=== PATIENT | male | born 1955 | race African-American/Black ===

== ENCOUNTER 2018-08-14 12:48 | Inpatient (IN) | payer MEDICAID ==
[~2018-08-14] VITALS: Ht 182.9 cm; Wt 70.3 kg
--- NOTE | 2018-08-14 13:00 | NUR ---
patient presented to the ER c/o abd pain, on room air, breathing evenly and unlabored. connected to the monitor and pulse ox. kept comfortable, will continue to monitor accordingly.
[2018-08-14] MEDS ORDERED: ONDANSETRON HCL/PF 4 MG/2 ML VIAL IVP ONE (13:30)
[2018-08-14] MEDS ORDERED: MORPHINE SULFATE INJ 2 MG/ML DISP.SYRIN IV ONE (13:30)
[2018-08-14] MEDS ORDERED: IV NS 0.9% 1,000 ML BAG IV ONE (13:30)
[2018-08-14] MEDS ORDERED: MORPHINE SULFATE INJ 4 MG/ML DISP.SYRIN ONE (13:41)
[2018-08-14] MEDS ORDERED: ONDANSETRON HCL/PF 4 MG/2 ML VIAL ONE (13:41)
[2018-08-14 13:45] LABS: BASOPHILS % (AUTO) 0.7 % (0.0-2.0); EOSINOPHILS % (AUTO) 1.9 % (0.0-6.0); HEMATOCRIT 40 % (39-51); HEMOGLOBIN 13.4 g/dL (13.5-17.5); LYMPHOCYTES # (AUTO) 1.5 /CMM (0.8-4.8); LYMPHOCYTES % (AUTO) 35.8 % (20.0-44.0); MEAN CORPUSCULAR HGB CONC 33 g/dl (31.0-36.0); MEAN CORPUSCULAR VOLUME 92 fL (80-96); MONOCYTES # (AUTO) 0.3 /CMM (0.1-1.30); MONOCYTES % (AUTO) 7.9 % (2.0-12.0); NEUTROPHILS # (AUTO) 2.3 /CMM (1.8-8.9); NEUTROPHILS % (AUTO) 53.7 % (43.0-81.0); PLATELET COUNT (AUTO) 193 /CMM (150-450); RED BLOOD CELL COUNT(AUTO) 4.35 MIL/uL (4.5-6.0); WHITE BLOOD COUNT (AUTO) 4.3 K/uL (4.3-11.0)
[2018-08-14 13:54] LABS: CALCIUM, SERUM 8.4 mg/dL (8.5-10.1); CARBON DIOXIDE 29 mmol/L (21-32); CHLORIDE 109 mmol/L (98-107); CREATININE 1.3 mg/dL (0.6-1.3); GLUCOSE 166 mg/dL (74-106); POTASSIUM 3.6 mmol/L (3.5-5.1); SODIUM SERUM 145 mmol/L (136-145); UREA NITROGEN, BLOOD 26 mg/dL (7-18)
[2018-08-14 14:01] LABS: ALANINE AMINOTRANSFERASE 62 U/L (12-78); ALBUMIN 3.5 g/dL (3.4-5.0); ALKALINE PHOSPHATASE 53 U/L (46-116); ASPARTATE AMINOTRANSFERASE 48 U/L (15-37); BILIRUBIN,DIRECT 0.1 mg/dL (0.0-0.2); BILIRUBIN,TOTAL 0.3 mg/dL (0.2-1.0); LIPASE 56 U/L (73-393)
[2018-08-14] MEDS ORDERED: IOHEXOL-300 100 ML VIAL IV ONE (15:33)
--- NOTE | 2018-08-14 15:54 | NUR ---
GOT BED 310-1
--- NOTE | 2018-08-14 15:56 | NUR ---
PATIENT IS GOING TO ROOM 325-1
--- NOTE | 2018-08-14 16:38 | NUR ---
PANEL ON - CALL PAGED
--- NOTE | 2018-08-14 16:53 | NUR ---
PANEL PAGED AGAIN
--- NOTE | 2018-08-14 17:20 | NUR ---
CALLED [facility] AGAIN
--- NOTE | 2018-08-14 18:37 | NUR ---
called Amber GILBERT for KARISHMA, report given.
[2018-08-14 19:00] VITALS: BP 136/80
[2018-08-14] MEDS ORDERED: ONDANSETRON HCL/PF 4 MG/2 ML VIAL IVP PRN (19:00)
[2018-08-14] MEDS ORDERED: ZOLPIDEM TARTRATE 5 MG TABLET PO PRN (19:00)
[2018-08-14] MEDS ORDERED: MAG HYDROX/AL HYDROX/SIMETH 30 ML UDC PO PRN (19:00)
[2018-08-14] MEDS ORDERED: MAGNESIUM HYDROXIDE 30 ML UDC PO PRN (19:00)
--- NOTE | 2018-08-14 19:00 | NUR ---
RN NOTES PATIENT ADMITTED FROM ER ON TELE 62Y/OLD ON Dx.OF SYNCOPE. PATIENT A/O X4, NO ACUTE RESPIRATORY DISTRESS, PATIENT WAS COMPLAINING OF HEADACHE, TELE MONITOR ON SR-55, V/S TAKEN BP- 136/80, P-57, R-20, O2-96 RA, T-97.5. PATIENT AMBULATORY USING BATHROOM. ENDORSED ONCOMING NURSE FOR PLAN OF CARE, AND OTHER COMPUTER INTERVENTION. CALL LIGHT WITHIN TO REACH. WILL CONTINUED MONITORING.
--- NOTE | 2018-08-14 19:19 | NUR ---
wheeled patient via gurney accompanied by RN and emt in no apparent distress noted. Amber GILBERT at bedside for abrahan.
[2018-08-14] MEDS ORDERED: ALBUTEROL FS 2.5 MG/0.5 ML VIAL.NEB ONE (19:32)
[2018-08-14] MEDS ORDERED: IPRATROPIUM NEB FS 0.5 MG/2.5 ML AMPUL.NEB ONE (19:32)
[2018-08-14] MEDS: IPRATROPIUM NEB FS 0.5 MG/2.5 ML AMPUL.NEB NEB PRN (19:37)
[2018-08-14] MEDS: ALBUTEROL FS 2.5 MG/0.5 ML VIAL.NEB NEB PRN (19:37)
--- NOTE | 2018-08-14 19:37 | NUR ---
NEEDLE LOOM OPERATOR OPENING NOTES RECEIVED PT IN BED, AWAKE ALERT ORIENTEDX4, BREATHING EVEN AND MINIMALLY LABORED, PT REPORTS HAVING ASTHMA, RT CALLED FOR BREATHING TX. COMPLAINTS ON HEAD ACHE 11/27, WILL ADMINISTER NORCO 5/325 PRESCRIBED, IV ACCESS ON THE R AC 20G PATENT AND FLUSHING, VITALS STABLE, HR IN THE 50S, LEAD VULCANIZING OPERATOR IN PLACE. BED IN LOWEST LOCKED POSITION, CALL LIGHT WITHIN REACH AT ALL TIMES, WILL CONTINUE TO MONITOR.
[2018-08-14] MEDS: HYDROCODONE/APAP 5/325MG 1 EACH TABLET PO PRN (19:57)
[2018-08-14 20:00] VITALS: BP 143/77
[2018-08-14] MEDS: IV NS 0.9% 1,000 ML IV PRN (20:06)
[2018-08-15] VITALS (7 sets, daily range): BP systolic 112–143; BP diastolic 56–87
[2018-08-15] MEDS: HYDROCODONE/APAP 5/325MG 1 EACH TABLET PO PRN (00:18)
[2018-08-15] MEDS: IV NS 0.9% 1,000 ML IV PRN ×2 (05:04→16:06)
--- NOTE | 2018-08-15 06:51 | NUR ---
SLIVER MACHINE OPERATOR CLOSING NOTES PT REMAINS IN BED, AWAKE ALERT ORIENTEDX4, BREATHING EVEN AND UNLABORED, IV ACCESS ON THE L FA 20G PATENT AND FLUSHING, VITALS STABLE, HR IN THE 50S AND 60S, MUSIC THERAPY SPECIALIST IN PLACE. BED IN LOWEST LOCKED POSITION, CALL LIGHT WITHIN REACH AT ALL TIMES, WILL ENDORSE TO DAY NURSE FOR KARISHMA
[2018-08-15 08:00] LABS: BASOPHILS % (AUTO) 0.5 % (0.0-2.0); EOSINOPHILS % (AUTO) 3.5 % (0.0-6.0); HEMATOCRIT 38 % (39-51); HEMOGLOBIN 12.6 g/dL (13.5-17.5); LYMPHOCYTES # (AUTO) 2.4 /CMM (0.8-4.8); LYMPHOCYTES % (AUTO) 54.1 % (20.0-44.0); MEAN CORPUSCULAR HGB CONC 33 g/dl (31.0-36.0); MEAN CORPUSCULAR VOLUME 92 fL (80-96); MONOCYTES # (AUTO) 0.5 /CMM (0.1-1.30); MONOCYTES % (AUTO) 11.5 % (2.0-12.0); NEUTROPHILS # (AUTO) 1.4 /CMM (1.8-8.9); NEUTROPHILS % (AUTO) 30.4 % (43.0-81.0); PLATELET COUNT (AUTO) 169 /CMM (150-450); RED BLOOD CELL COUNT(AUTO) 4.13 MIL/uL (4.5-6.0); WHITE BLOOD COUNT (AUTO) 4.5 K/uL (4.3-11.0)
--- NOTE | 2018-08-15 08:00 | NUR ---
EXERCISE PLANNER OPENING NOTES RECEIVED PT IN BED, AWAKE ALERT ORIENTEDX4, BREATHING EVEN AND MINIMALLY LABORED, ON ROOM AIR.COMPLAINTS ON HEAD ACHE 07/28, TYLENOL 650 MG PO GIVEN. VOMITED 1X WITH SMALL AMT OF FOOD EATEN DURING BREAKFAST.ZOFRAN 1V GIVEN. IV ACCESS ON THE R AC 20G PATENT AND FLUSHING, SB HR IN THE 50S, FINANCIAL SERVICE REP IN PLACE. HOB ELEVATED.BED IN LOWEST LOCKED POSITION, CALL LIGHT WITHIN REACH.WILL CONTINUE TO MONITOR.
[2018-08-15 08:13] LABS: CALCIUM, SERUM 7.8 mg/dL (8.5-10.1); CREATININE 0.9 mg/dL (0.6-1.3); PHOSPHORUS 3.1 mg/dL (2.5-4.9); POTASSIUM 3.9 mmol/L (3.5-5.1)
[2018-08-15] MEDS: PANTOPRAZOLE 40 MG TABLET.DR PO SCH (08:36)
[2018-08-15] MEDS: ACETAMINOPHEN 325 MG TABLET PO PRN ×3 (08:36→22:29)
[2018-08-15 09:11] LABS: THYROID STIMULATING HORMONE 1.792 uIU/mL (0.358-3.74)
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
--- NOTE | 2018-08-15 13:00 | NUR ---
ASSISTED PT IN CALLING KALEB OF [phone].PT STATED THAT HE HAS NO MONEY.SPOKE TO KALEB WHO STATED THAT THE PT HAS TO HAVE $250 PAYMENT FOR MOVING-BUT PT DENIES HAVING MONEY AT PRESENT AND STATED THAT HE WILL RECEIVED HIS ALLOWANCE EVERY FIRST DAY OF THE MONTH.INFORMED ELAN OLMSTEAD WHO STATED THAT THE PT NEEDS TO GO BACK TO THE CUSTODIAL SINCE HE DOESN'T HAVE THE MONEY TO PAY THE [facility].
--- NOTE | 2018-08-15 13:05 | NUR ---
PT MADE AWARE OF RETURNING BACK TO [facility] IF HE'LL BE DISCHARGED.
--- NOTE | 2018-08-15 15:00 | NUR ---
INFORMED FLOR MANDUJANO OF PT VOMITING 3RD TIME WITH SMALL AMT OF BROWN EMESIS.ZOFRAN 4 MG IV GIVEN.
[2018-08-15] MEDS: ONDANSETRON HCL/PF 4 MG/2 ML VIAL IVP PRN ×2 (15:42→22:19)
--- NOTE | 2018-08-15 16:15 | NUR ---
PT STATED THAT HE HAD BM 2 DAYS AGO AND IS DRINKING PRUNE JUICE AND EGG SANDWICH AT THIS TIME WITHOUT ANY C/O NAUSEA.WILL MONITOR.
--- NOTE | 2018-08-15 19:30 | NUR ---
RECEIVED PATIENT IN BED ASLEEP, EASILY AROUSABLE. AO X 3, ABLE TO MAKE NEED KNOWN. NO ACUTE DISTRESS NOTED. DENIES ANY PAIN AT THIS TIME. IV SITE PATENT, INTACT; IVF INFUSING ORDERED. TELE READING SINUS CAPRICE HR 50. SAFETY REMINDERS GIVEN. ON LOW BED WITH BILATERAL UPPER SIDE RAILS UP. CALL TOURE WITHIN EASY REACH. WILL CONTINUE TO MONITOR.
[2018-08-15] MEDS: ACETYLCYSTEINE 10% 3,000 MG/30 ML VIAL PO SCH (20:58)
[2018-08-16] VITALS: BP 146/82
[2018-08-16 00:35] VITALS: BP 146/82
[2018-08-16] MEDS: IV NS 0.9% 1,000 ML IV PRN (02:06)
[2018-08-16] MEDS: HYDROCODONE/APAP 5/325MG 1 EACH TABLET PO PRN ×2 (02:21→18:40)
[2018-08-16 04:00] VITALS: BP 140/80
--- NOTE | 2018-08-16 06:18 | NUR ---
PATIENT ASLEEP, EASILY AROUSABLE. RESPIRATIONS EVEN. NO SIGNS OF PAIN NOTED. DUE MED GIVEN WITH NO ASE NOTED. IVF INFUSING ORDERED. NPO SINCE MIDNIGHT. NEEDS ATTENDED. SAFETY PRECAUTIONS AND COMFORT MEASURES IN PLACE. WILL GIVE REPORT TO DAY SHIFT FOR CONTINUITY OF CARE.
[2018-08-16 06:24] LABS: BASOPHILS % (AUTO) 0.6 % (0.0-2.0); EOSINOPHILS % (AUTO) 4.9 % (0.0-6.0); HEMATOCRIT 39 % (39-51); HEMOGLOBIN 12.9 g/dL (13.5-17.5); LYMPHOCYTES # (AUTO) 1.9 /CMM (0.8-4.8); LYMPHOCYTES % (AUTO) 51.9 % (20.0-44.0); MEAN CORPUSCULAR HGB CONC 33 g/dl (31.0-36.0); MEAN CORPUSCULAR VOLUME 91 fL (80-96); MONOCYTES # (AUTO) 0.4 /CMM (0.1-1.30); NEUTROPHILS # (AUTO) 1.2 /CMM (1.8-8.9); NEUTROPHILS % (AUTO) 31.6 % (43.0-81.0); PLATELET COUNT (AUTO) 160 /CMM (150-450); RED BLOOD CELL COUNT(AUTO) 4.29 MIL/uL (4.5-6.0); WHITE BLOOD COUNT (AUTO) 3.7 K/uL (4.3-11.0)
[2018-08-16 06:56] LABS: ALANINE AMINOTRANSFERASE 43 U/L (12-78); ALBUMIN 2.8 g/dL (3.4-5.0); ALKALINE PHOSPHATASE 38 U/L (46-116); ASPARTATE AMINOTRANSFERASE 28 U/L (15-37); BILIRUBIN,TOTAL 0.4 mg/dL (0.2-1.0); CARBON DIOXIDE 26 mmol/L (21-32); CHLORIDE 108 mmol/L (98-107); CREATININE 0.8 mg/dL (0.6-1.3); GLUCOSE 86 mg/dL (74-106); MAGNESIUM 1.8 mg/dL (1.8-2.4); PHOSPHORUS 2.5 mg/dL (2.5-4.9); POTASSIUM 3.8 mmol/L (3.5-5.1); SODIUM SERUM 140 mmol/L (136-145); TOTAL PROTEIN, SERUM 5.9 g/dL (6.4-8.2); UREA NITROGEN, BLOOD 13 mg/dL (7-18)
[2018-08-16] MEDS: PANTOPRAZOLE 40 MG TABLET.DR PO SCH (07:30)
[2018-08-16 07:53] LABS: FREE PSA 0.08 ng/mL (0.00-45); PROSTATE SPECIFIC ANTIGEN SCR 0.77 ng/mL (0.00-4.00)
[2018-08-16 08:00] VITALS: BP 146/76
--- NOTE | 2018-08-16 08:00 | NUR ---
COFFEE ROASTER OPENING NOTES RECEIVED PT IN BED, AWAKE ALERT ORIENTEDX4, BREATHING EVEN AND NON LABORED IN ROOM AIR.IV ACCESS ON THE R AC 20G PATENT AND FLUSHING, SB HR IN THE 50S, DECK MECHANIC IN PLACE.ON NPO FOR CT ABD W WO CONTRAST PROCEDURE.WITH IVF NS AT 125 ML/HR INFUSING WELL TO LFA. HOB ELEVATED.BED IN LOWEST LOCKED POSITION, CALL LIGHT WITHIN REACH.WILL CONTINUE TO MONITOR.
[2018-08-16] MEDS ORDERED: IV NS 0.9% 250 ML IV ONE (08:59)
[2018-08-16] MEDS ORDERED: CT SWABBABLE VALVE TRANS SET 1 EA INFUS.SET MC ONE (08:59)
[2018-08-16] MEDS ORDERED: IOHEXOL-300 100 ML VIAL IV ONE (08:59)
[2018-08-16] MEDS ORDERED: ASPIRIN/ACETAMINOPHEN/CAFFEINE 1 EACH TABLET PO PRN (11:30)
[2018-08-16] MEDS ORDERED: METOCLOPRAMIDE HCL 10 MG/2 ML VIAL IV PRN (11:30)
[2018-08-16] MEDS: ALBUTEROL FS 2.5 MG/0.5 ML VIAL.NEB NEB PRN (12:40)
[2018-08-16] MEDS: IPRATROPIUM NEB FS 0.5 MG/2.5 ML AMPUL.NEB NEB PRN (12:40)
[2018-08-16] MEDS: ACETYLCYSTEINE 10% 3,000 MG/30 ML VIAL PO SCH ×2 (12:43→17:26)
--- NOTE | 2018-08-16 14:35 | NUR ---
ELAN met with pt. bedside. Pt. is alert and oriented x 4. ELAN discussed discharge plan with the pt. Pt. is interested in the [facility] placement. ELAN gave pt. the [facility] placement list for [phone] following resources: [facility] [address] [facility] [place] [id number] Homeless mentally ill people may be seen at [facility] on a walk-in basis. [facility] (Behavioral Health) [address], 2nd floor [place] [address] Main Number: [facility] ([facility]): Contact [facility] [address] [place] [address] Walk-in for psychiatric consultation HOURS: Mon-Fri 8am--7pm Saturdays 9am--5:30pm Closed on Sundays [facility] (Behavioral Health) [facility] Walk-in during certain hours [place], [place] [id number] Operation Hours: MON - FRI 8:00 a.m. - 5:00 p.m. Walk In Hours: MON - FRI 8:00 a.m. - 5:00 p.m. Services by Age: Adults and Older Adults [facility] Homeless [facility] [address] [facility], Vaccines and infectious disease resource [address] [place]. [place] Hours: M, T, Th, F 8:30AM-4:30PM Walk-ins allowed Provide medical screening and pharmacy [facility] [address] [facility] [address] [place] [address] Vaccines and infectious diseases Hours M-F 8AM-3:30PM Walk-ins allowed Provide medical screening and pharmacy [facility] [address] [facility]. [place] [id number] Hours 8AM-4:30PM Walk-ins allowed Provide medical screening and pharmacy Pt. will require a tap card upon discharge. Homeless Patient Waiver form was placed in the chart. Pt. will have to sign form upon discharge. EMILIE Mcnally notified. No other social service needs are requested at this time. SW is available, if needed. Addendum: 08/16/18 at 1443 by ISHAN ANSARI Pt. did call [facility] yesterday, however pt. is unable to have the funds until August 19, 2018. Pt. to contact [facility] on August 19 for placement. ELAN gave ptTyree Trent's contact number so that he can call if discharged.
[2018-08-16 16:00] VITALS: BP 138/64
--- NOTE | 2018-08-16 19:10 | NUR ---
ETL LEAD NOTES RECEIVED PT IN SLEEPING BUT EASILY AWOKEN VERBALLY OR BY TOUCH. PT A/O X4. PT DENIES PAIN AT THIS TIME. RESPIRATIONS EVEN AND UNLABORED OR NO S/S OF ACUTE DISTRESS OR SOB NOTED. ENCOURAGED FLUIDS TOLERATED. CALL LIGHT WITHIN REACH. WILL CONTINUE TO MONITOR. Addendum: 08/16/18 at 2214 by KEYUR ABEBE RN MS GILBERT NOTES
--- NOTE | 2018-08-16 19:40 | NUR ---
PT RESTING IN BED SLEEPING BUT AROUSABLE.NORCO GIVEN FOR HEADACHE WITH EFFECTIVE RESULT.PT DENIES MAKING BM YESTERDAY INSPITE OF TAKING PRUNE JUICE 2 CUPS YESTERDAY.ADMINISTER MILK OF MAGNESIA PO AND ENCOURAGED INCREASE FLUID INTAKE.NO NAUSEA,VOMITING EPISODE THROUGHOUT THE SHIFT.WILL CONTINUE TO MONITOR.CALL LIGHT PLACED WITHIN REACH.
[2018-08-16 20:00] VITALS: BP 156/87
[2018-08-17] MEDS: HYDROCODONE/APAP 5/325MG 1 EACH TABLET PO PRN ×2 (01:07→08:33)
--- NOTE | 2018-08-17 06:17 | NUR ---
MS RN NOTES PT IN BED SLEEPING BUT EASILY AWOKEN VERBALLY OR BY TOUCH. PT A/O X4. PT DENIES PAIN AT THIS TIME. RESPIRATIONS EVEN AND UNLABORED OR NO S/S OF ACUTE DISTRESS OR SOB NOTED. ENCOURAGED FLUIDS TOLERATED. SNACKS PROVIDED NEEDED, TOLERATED WELL. NO VOMITING EPISODES THROUGHOUT SHIFT. CALL LIGHT WITHIN REACH. WILL ENDORSE TO ON COMING NURSE FOR KARISHMA.
[2018-08-17 08:00] VITALS: BP_SYST 136; BP_SYST 139; BP_DIAS 67; BP_DIAS 74
[2018-08-17] MEDS: PANTOPRAZOLE 40 MG TABLET.DR PO SCH (08:27)
[2018-08-17] MEDS: ACETYLCYSTEINE 10% 3,000 MG/30 ML VIAL PO SCH (08:28)
[2018-08-17] MEDS: ALBUTEROL FS 2.5 MG/0.5 ML VIAL.NEB NEB PRN (09:14)
[2018-08-17] MEDS: IPRATROPIUM NEB FS 0.5 MG/2.5 ML AMPUL.NEB NEB PRN (09:14)
[2018-08-17 13:07] LABS: AFP, TUMOR MARKER 2.1 ng/mL (0.0-8.3)
--- NOTE | 2018-08-17 13:55 | NUR ---
PATIENT CLEARED FOR D/C BY MD. PATIENT ALERT AND ORIENTEDX3, VS ARE STABLE AND WITHIN NORMAL RANGE, BREATHING UNLABORED AND EVEN ON ROOM AIR. PATIENT REFUSED TO WAIT FOR D/C INSTRUCTIONS, REFUSE TO TAKE A PICTURE. PATIENT SIGHED HOMELESS WAIVER FORM AND VALUABLE FORME SIGHED. LIST OF SHELTERS PROVIDED, TAP CARD PROVIDED. IV ASSESS REMOVED , ID WRIST BAND REMOVED.SAFELY ESCORTED PATIENT TO THE LOBBY.
== END 2018-08-17 13:50 | disposition home or self-care (01) | DRG 48 ==
LOC: ER 12:53 → TELE 17:01 → MED 08-16 11:17
PROVIDERS: ADMIT Nurse Practitioner Acute Care
DX: G90.8 Other disorders of autonomic nervous system (principal); N17.0 Acute kidney failure with tubular necrosis; E44.0 Moderate protein-calorie malnutrition; J45.901 Unspecified asthma with (acute) exacerbation; K27.9 Peptic ulcer, site unspecified, unspecified as acute or chronic, without hemorrhage or perforation; E86.0 Dehydration; F12.90 Cannabis use, unspecified, uncomplicated; K76.9 Liver disease, unspecified; F17.210 Nicotine dependence, cigarettes, uncomplicated; Z59.0 Homelessness; N40.0 Benign prostatic hyperplasia without lower urinary tract symptoms; D64.9 Anemia, unspecified
CPT/HCPCS: 36415; 70450-TC; 71045-TC; 72125-TC; 74170-TC; 80048-TC; 80053-TC; 80061-TC; 80076-TC; 82105; 82728-TC; 83540-TC; 83690-TC; 83735-TC; 84100-TC; 84153-TC; 84154-TC; 84439-TC; 84443-TC; 84484-TC; 85025-TC; 85730-TC; 86301; 87081-TC; 93307-TC; 94799-TC; G0378; G0480; J2270; J2405; J2765; J7030; J7050; Q9967